=== PATIENT | female | born 1970 | race Two or more races ===

== ENCOUNTER 2024-07-26 00:05 | Day surgery (SDC) | payer BC, SELFPAY ==
[2024-07-26] VITALS (13 sets, daily range): BP systolic 124–174; BP diastolic 61–100; PULSE 72–104; RESP 12–22; TEMP 36.2–37.2; O2SAT 94–100
--- NOTE | 2024-07-26 00:33 | PD.EDRME ---
Rapid Medical Screening Exam RME Arrival date/time: 07/26/24 00:05 Chief Complaint: Abdominal Pain Time Seen by Provider: 07/26/24 00:32 Vital signs reviewed by provider: Miriam RME Narrative: 53-year-old female presents to the ED with a complaint of abdominal pain that began 1 day ago. Denies fever. Also complains of vomiting up to 3 times per day x 1 day. Denies diarrhea. Past medical history includes H. pylori
[2024-07-26 01:31] LABS: Basophils % (Auto) 0 % (0-2.5); Eosinophils # (Auto) 0.1 Thou/mm3 (0.0-0.5); Eosinophils % (Auto) 1 % (0-10); Hematocrit 41.5 % (36.0-46.0); Hemoglobin 14.4 g/dL (12.0-16.0); Immature Granulocytes % (Auto) 0 % (0-0); Immature Granulocytes Auto 0.02 Thou/mm3 (0.00-0.00); Lymphocytes # (Auto) 1.2 Thou/mm3 (1.0-4.8); Lymphocytes % (Auto) 13 % (10-50); Mean Corpuscular HGB Conc 34.7 g/dl (31.0-37.0); Mean Corpuscular Hemoglobin 28.7 pg (25.0-35.0); Mean Corpuscular Volume 83 fL (80-100); Monocytes # (Auto) 0.4 Thou/mm3 (0.0-0.8); Monocytes % (Auto) 4 % (0-12); Neutrophils # (Auto) 7.5 Thou/mm3 (1.8-7.7); Neutrophils % (Auto) 82 % (37-80); Nucleated Red Blood Cell % 0 /100 WBC (0); Platelet Count 194 Thou/mm3 (140-440); Red Blood Count 5.01 Miln/mm3 (4.00-5.20); White Blood Count 9.2 Thou/mm3 (3.6-11.0)
[2024-07-26] MEDS: ONDANSETRON INJ 2 MG/ML INJ 2 ML 4 MG IVP (01:49)
[2024-07-26] MEDS: MORPHINE SULF INJ 10 MG/ML VIAL 5 MG IVP (01:49)
[2024-07-26] MEDS: SODIUM CHLORIDE 0.9% 1000 ML 1,000 ML 80 ML IV (01:50)
[2024-07-26 02:06] LABS: Collection Type, Urine Clean Catch
[2024-07-26 02:07] LABS: Alanine Aminotransferase 33 U/L (10-49); Albumin, Serum 4.8 gm/dL (3.5-5.0); Albumin/Globulin Ratio 1.8 (1.2-2.2); Alkaline Phosphatase 95 U/L (46-116); Anion Gap 12 (7-16); Aspartate Amino Transferase 31 U/L (0-34); BUN/Creatinine Ratio 19 Ratio (12-20); Bilirubin,Total 0.5 mg/dL (0.3-1.2); Blood Urea Nitrogen 21 mg/dL (9-23); C-Reactive Protein < 0.5 mg/dL (0.0-0.9); Calcium 9.5 mg/dL (8.3-10.6); Calcium (Corrected) 9.5 mg/dL (8.5-10.1); Chloride 103 mMol/L (98-107); Creatinine (Component) 1.1 mg/dL (0.6-1.3); Globulin 2.6 gm/dL (2.3-3.5); Glucose 138 mg/dL (74-106); Lipase 56 U/L (12-53); Osmolality,Calculated 291 (275-295); Potassium 4.2 mMol/L (3.4-5.1); Procalcitonin 0.04 ng/ml (0.0-0.49); Sodium 144 mMol/L (136-145); Total Protein 7.4 gm/dL (5.7-8.2); eGFR 60 See Note
[2024-07-26 02:14] LABS: Bilirubin,Urine Negative (Negative); Blood,Urine Negative (Negative); Clarity,Urine Clear (Clear/Hazy); Color,Urine Lt-Yellow (Lt Yel-Yel); Glucose, Urine Negative (Negative); Ketones,Urine Negative (Negative); Leukocyte Esterase,Urine Positive (Negative); Nitrite,Urine Negative (Negative); Protein,Urine Trace (Neg - Trace); RBC,Urine 1 /hpf (0-3); Specific Gravity,Urine 1.027 (1.001-1.035); Squamous Epithelial Cell,Urine 5 /hpf (0-5); Urobilinogen,Urine Negative mg/dL (0.0-1.0); WBC,Urine 2 /hpf (0-5)
--- NOTE | 2024-07-26 02:14 | PD.EDABDPN ---
ED Abdominal Pain RME/HPI General Chief Complaint: Abdominal Pain Stated complaint: ABD PAIN Time seen by provider: 07/26/24 00:32 Arrival date/time: 07/26/24 00:05 RME / HPI RME / HPI narrative: 53-year-old female presents to the ED with a complaint of abdominal pain that began 1 day ago. Denies fever. Also complains of vomiting up to 3 times per day x 1 day. Denies diarrhea. Past medical history includes H. pylori Dr. Magallanes?s Main ED Evaluation: 53yo female with a previous hysterectomy presents to the ED for a chief complaint of epigastric pain x 1999. Patient states she finished taking her treatment for H. Pylori today, reporting she started having significant epigastric pain at 1999. She reports associated N/V and was unable to tolerate the pain, so she came in for evaluation. Patient denies any fever, chills, UTI symptoms, back pain or any other associated symptoms. Patient states she's had this pain for the last few years. NKA. Related Data Previous Rx's ?Medication ?Instructions ?Recorded famotidine 20 mg tablet (Acid 20 mg PO BID Epigastric pain 10 07/26/24 Controller) days #20 tabs hydrocodone 5 mg-acetaminophen 325 1 tab PO Q6H PRN pain #10 tabs 07/26/24 mg tablet ondansetron 4 mg disintegrating 4 mg PO Q6H PRN nausea and 07/26/24 tablet vomiting #14 tabs sucralfate 1 gram tablet 1 g PO TID Gastritis 10 days #30 07/26/24 tabs Allergies Allergy/AdvReac Type Severity Reaction Status Date / Time NKA* Allergy Uncoded 10/13/22 07:08 Review of Systems Review of Systems Systems Reviewed: All systems reviewed, normal except as documented Past Medical History Past Medical History NEUROLOGIC: Negative Neurological Disorders CARDIAC: Negative Cardiac Disorders or Congestive Heart Failure RESPIRATORY: Negative Chronic Obstructive Pulmonary Disease (COPD) GASTROINTESTINAL: Positive Obesity; Negative Gastrointestinal Disorders GENITOURINARY: Negative Genitourinary Disorders or Renal Disease REPRODUCTIVE: Negative Pelvic Inflammatory Disease MUSCULOSKELETAL: Negative Musculoskeletal Disorders ENDOCRINE: Negative Endocrine Disorders, Diabetes Mellitus Type 1 or Diabetes Mellitus Type 2 HEMATOLOGIC: Negative Blood Disorders OTHER HISTORY: Positive Chicken Pox and Measles; Negative Hospitalization, Autoimmune Disease, Down Syndrome, Developmental Delay, Shingles, Falls, Blood Transfusions, Anesthesia Reactions, Organ Transplant or Cancer Surgical History SURGICAL: Positive Tubal Ligation; Negative Cardiac Surgery, Endocrine Surgery, Ear Surgery, Abdominal Surgery, Nephrectomy, Joint Replacement, Neurologic Surgery or Organ Transplant Social History SMOKING STATUS: Never smoker ED Exam Narrative Physical exam: GENERAL APPEARANCE: alert and oriented x 4, well-developed, well-nourished, moderate pain distress VITALS: All vitals were reviewed and the pulse ox is 98% on room air, which is normal according to my interpretation. HEENT: Normocephalic, atraumatic; pupils equal, round, reactive to light; EOMI; mucous membranes pink, moist; oropharynx clear NECK: Supple LUNGS: CTABL; no wheezes, no rales, no rhonchi HEART: Regular rate, regular rhythm; normal S1, S2; no murmurs ABDOMEN: non distended; soft, no tenderness, no guarding, no rebound; no masses, no organomegaly, no hernia BACK: no CVA tenderness EXTREMITIES: atraumatic; no edema NEUROLOGIC: awake; alert and oriented x4; cranial nerves II-XII grossly intact; no focal sensory or motor deficits PSYCHIATRIC: appropriate mood and affect SKIN: warm, dry, normal color; no rashes Course Quality Measures none Orders Category Date Time Status CT Screening NOW Care 07/26/24 04:37 Active EKG (ED ONLY) *Do not use* NOW Care 07/26/24 04:[address] abdomen pelvis w con Stat Exams 07/26/24 04:36 Taken EKG (ED Only) Stat Exams 07/26/24 04:36 Draft US gall bladder Stat Exams 07/26/24 04:36 Ordered XR chest 1V portable Stat Exams 07/26/24 04:36 Taken C-Reactive Protein Stat Lab 07/26/24 01:18 Completed CBC Stat Lab 07/26/24 01:18 Completed Comprehensive Metabolic Panel Stat Lab 07/26/24 01:18 Completed Lactate (Lactic Acid) Stat Lab 07/26/24 01:18 Completed Lipase Stat Lab 07/26/24 01:18 Completed Procalcitonin Stat Lab 07/26/24 01:18 Completed Urinalysis Stat Lab 07/26/24 02:00 Completed Famotidine Inj [Pepcid Inj] Med 07/26/24 02:14 Discontinued 20 mg IVP X1 ONE Morphine Inj Med 07/26/24 00:38 Discontinued 5 mg IVP Q1H PRN Ondansetron Inj [Zofran Inj] Med 07/26/24 00:38 Discontinued 4 mg IVP X1 ONE Pantoprazole Inj [Protonix Inj] Med 07/26/24 02:14 Discontinued 40 mg IVP X1 ONE Sodium Chloride 0.9% 1000 ml [Ns] 1,000 ml Med 07/26/24 00:39 Active IV 80 mls/hr fentaNYL INJ [Sublimaze Inj] Med 07/26/24 04:38 Discontinued 50 mcg IVP X1 ONE mg Hyd/Al Hyd/Rubio Susp [Maalox Susp] Med 07/26/24 02:14 Discontinued 30 ml PO X1 ONE Vital Signs Vital signs: Vital Signs Temperature 98.9 F 07/26/24 00:31 Pulse Rate 104 H 07/26/24 00:31 Respiratory Rate 20 07/26/24 00:31 Blood Pressure 174/99 H 07/26/24 00:31 Pulse Oximetry (%) 97 07/26/24 00:31 Oxygen Delivery Method Room Air 07/26/24 00:31 Abdominal Pain MDM MDM Narrative MDM Narrative:: Scribe Attestation: 07/26/24 - Kristen Min am scribing for and in the presence of Dr. Magallanes. 0430: Patient does not have any abdominal tenderness. V/S are within normal limits. Patient states her pain has improved, but has not completely resolved. CT abdomen pelvis and US gallbladder ordered. 0600: Care signed out to Dr. Barrios (emergency physician). Past medical, surgical, social and family history reviewed. Vitals and home medications reviewed. Results and treatment plan discussed. They will assume the care of the patient at this time and will follow the patient, pending CT abdomen pelvis and US gallbladder. Patient data External records reviewed:: [facility] previous records (Per chart review, patient was seen here on 01/09/23 for acute epigastric pain.) Clinical information provided by:: patient Social determinants that could affect healthcare access:: none Patient has the following chronic illnesses:: none How is presenting disease/condition affected by chronic disease/condition?: no chronic disease Evaluation data The following diagnostics were reviewed and interpreted by me:: lab results Lab and/or radiology exams considered but not ordered:: none Interpretation Summary: CBC, CMP, and UA are all unremarkable. Medications / Prescriptions Medications or Prescriptions considered but not ordered:: none Medication administrations:: Medication Administration History Sodium Chloride (Ns) 1,000 mls @ 80 mls/hr IV .[id number] ONE Stop: 07/26/24 13:08 Last Admin: 07/26/24 01:50 Dose: 80 mls/hr Documented By: KEYONNA Discontinued Medications Al Hydrox/Mg Hydrox/Simethicone (Mg Hyd/Al Hyd/Rubio (Maalox Reg) Susp 30 Ml Udc) 30 ml PO X1 ONE Stop: 07/26/24 02:15 Last Admin: 07/26/24 02:46 Dose: 30 ml Documented By: KEYONNA Famotidine (Famotidine Inj 10 Mg/Ml Vial 2 Ml) 20 mg IVP X1 ONE Stop: 07/26/24 02:15 Last Admin: 07/26/24 02:45 Dose: 20 mg Documented By: KEYONNA Fentanyl Citrate (Fentanyl Cit Inj 50 Mcg/Ml Amp 2ml) 50 mcg IVP X1 ONE Stop: 07/26/24 04:39 Last Admin: 07/26/24 05:10 Dose: 50 mcg Documented By: KEYONNA Morphine Sulfate (Morphine Sulf Inj 10 Mg/Ml Vial) 5 mg IVP Q1H PRN PRN Reason: ABDOMINAL CRAMPING Last Admin: 07/26/24 01:49 Dose: 5 mg Documented By: KEYONNA Ondansetron HCl (Ondansetron Inj 2 Mg/Ml Inj 2 Ml) 4 mg IVP X1 ONE; Protocol Stop: 07/26/24 00:39 Last Admin: 07/26/24 01:49 Dose: 4 mg Documented By: KEYONNA Pantoprazole Sodium (Pantoprazole Inj 40 Mg Vial) 40 mg IVP X1 ONE Stop: 07/26/24 02:15 Last Admin: 07/26/24 02:46 Dose: 40 mg Documented By: KEYONNA see above Consultations Consultation(s) initiated? (list below): No Diagnosis Differential diagnosis abdominal pain: small bowel obstruction and other (gastritis, pancreatitis, PUD, cholecystitis) Most likely diagnosis given after review of the tests above:: Diagnostics pending at sign out. Admission Indicated Admission indicated?: not indicated Admission Request Was there a request for admission?: No Disposition Plan Disposition Plan: other (specify) (Signed out to Dr. Barrios at 0600 pending US gallbladder and CT abdomen pelvis.) Discharge Plan Prescriptions/Referrals Prescriptions/Med Rec: New famotidine [Acid Controller] 20 mg tablet 20 mg PO BID 10 Days Qty: 20 0RF sucralfate 1 gram tablet 1 g PO TID 10 Days Qty: 30 0RF ondansetron 4 mg tablet,disintegrating 4 mg PO Q6H PRN (Reason: nausea and vomiting) Qty: 14 0RF hydrocodone-acetaminophen 5-325 mg tablet 1 tab PO Q6H MDD 4 tabs PRN (Reason: pain) Qty: 10 0RF Referrals: Michelle Bautista PA-C [Primary Care Provider] - In 1 week Problem List Clinical Impression: Epigastric pain Patient/Caregiver Discharge Instructions Print Language: American Stand Alone Forms: Connie Award Info., Patient Portal Info Letter
[2024-07-26] MEDS: FAMOTIDINE INJ 10 MG/ML VIAL 2 ML 20 MG IVP (02:45)
[2024-07-26] MEDS: MG HYD/AL HYD/SIME (Maalox Reg) SUSP 30 ML UDC PO (02:46)
[2024-07-26] MEDS: PANTOPRAZOLE INJ 40 MG VIAL IVP (02:46)
--- NOTE | 2024-07-26 04:36 | XR_ITS ---
Examination: Abdomen sonogram, Limited Date and time of exam: July 26, 2024 1733 hours INDICATIONS: Right upper abdominal pain nausea and vomiting beginning 2 years ago Technique: Real-time steen scale transabdominal sonographic images of the upper abdomen obtained. Findings: Normal gallbladder Normal common bile duct 0.36 cm Pancreas obscured by bowel gas Liver 14.73 cm no focal liver lesions Normal hepatopedal portal venous flow Patent IVC. IMPRESSION: Normal gallbladder. Normal common bile duct
--- NOTE | 2024-07-26 04:36 | EKG_ITS ---
[facility] Test Date: 2024-07-26 Pat Name: REBECA SHIPLEY Department: Room: - Gender: Female Clinical Sociologist: : 1970 Requested By: Vitaliy Vega Order Number: [id number] Reading MD: Vitaliy Vega Measurements Intervals [place] Rate: 73 P: 21 MN: 168 QRS: 7 QRSD: 96 T: 43 QT: 399 QTc: 440 Interpretive Statements SINUS RHYTHM INCOMPLETE RIGHT BUNDLE BRANCH BLOCK [90+ ms QRS DURATION, TERMINAL R IN V1/V2, 40+ ms S IN I/aVL/V4/V5/V6] Compared to ECG 10/13/2022 07:23:05 Incomplete right bundle-branch block now present Myocardial infarct finding no longer present /store/S0/[id number]/ecg/[id number].pdf
--- NOTE | 2024-07-26 04:36 | XR_ITS ---
Examination: CT abdomen with intravenous contrast CT pelvis with intravenous contrast 2-D coronal reconstructions 2-D sagittal reconstructions Date and time of exam:August 22, 2024 at 0528 hours INDICATIONS: Onset of upper abdominal pain today. CTDI: vol (mGy) 15.5 DLP: (mGycm) 897 Technique: Multiple axial sections of the abdomen and pelvis have been obtained. 64 slice high-resolution scanner used. 3 mm axial sections have been obtained, post intravenous injection 60 cc Isovue 370 2-D sagittal, coronal reconstructions obtained. Low dose protocols were performed. One or more of the following dose reduction techniques were used; automated exposure control, adjustment of the mA and/or KV according to patient size, use of iterative reconstruction technique. Findings: No focal liver or splenic lesions No gallstones No pancreatic or adrenal mass. No renal or ureteral calculi. No hydronephrosis. Aorta normal size. Inflamed enlarged appendix which is retrocecal, coronal image 141 No pelvic abscess No pelvic mass Urinary bladder intact IMPRESSION: Acute appendicitis No pelvic abscess
--- NOTE | 2024-07-26 04:36 | XR_ITS ---
Examination: AP chest single view TECHNIQUE: AP portable upright chest single view Date and time: July 29, 2024, 0511 hours Comparison September 09, 2021 INDICATIONS: Epigastric pain and vomiting today FINDINGS: Normal heart size No pneumonia or pulmonary edema. The osseous structures are intact IMPRESSION: No pneumonia or pulmonary edema
[2024-07-26] MEDS: fentaNYL CIT INJ 50 mCg/ML AMP 2ML IVP (05:10)
--- NOTE | 2024-07-26 06:25 | PD.EDADDENDU ---
Emergency Room Addendum Addendum Narrative: 0600: Care assumed from Dr. Magallanes, the previous shift emergency physician. Past medical, surgical, social and family history reviewed. Vitals and home medications reviewed. I will assume the care of the patient at this time, pending CT US and final disposition. Please refer to the emergency department record for history and examination from initial visit.?The following addendum documentation note is intended to reflect any pending information, findings, or radiology results not included in the patient?s initial chart. 0708: Patient reports abdominal pain is mostly over epigastric region. On my examination, patient has McBurney's point tenderness. Reports only abdominal surgery she has had is tubal ligation. Not currently on any medications. 0820: Surgeon Dr. Blackwell has evaluated the patient and plans to admit them to the [facility] for surgery. RADIOLOGY Ordering Physician: Vitaliy Magallanes MD Date of Service: 07/26/24 Procedure(s): CT abdomen pelvis w con Accession Number(s): [id number] cc: Michelle Bautista PA-C; Joesph Ford MD; Vitaliy Magallanes MD~ Examination: CT abdomen with intravenous contrast CT pelvis with intravenous contrast 2-D coronal reconstructions 2-D sagittal reconstructions Date and time of exam:August 22, 2024 at 0528 hours INDICATIONS: Onset of upper abdominal pain today. CTDI: vol (mGy) 15.5 DLP: (mGycm) 897 Technique: Multiple axial sections of the abdomen and pelvis have been obtained. 64 slice high-resolution scanner used. 3 mm axial sections have been obtained, post intravenous injection 60 cc Isovue 370 2-D sagittal, coronal reconstructions obtained. Low dose protocols were performed. One or more of the following dose reduction techniques were used; automated exposure control, adjustment of the mA and/or KV according to patient size, use of iterative reconstruction technique. Findings: No focal liver or splenic lesions No gallstones No pancreatic or adrenal mass. No renal or ureteral calculi. No hydronephrosis. Aorta normal size. Inflamed enlarged appendix which is retrocecal, coronal image 141 No pelvic abscess No pelvic mass Urinary bladder intact IMPRESSION: Acute appendicitis No pelvic abscess Dictated By:Joesph Ford MD Signed By:<Electronically signed by Joesph Ford MD in OV>07/26/24 0711 Ordering Physician: Vitaliy Magallanes MD Date of Service: 07/26/24 Procedure(s): US gall bladder Accession Number(s): [id number] cc: Michlele Bautista PA-C; Joesph Ford MD; Vitaliy Magallanes MD~ Examination: Abdomen sonogram, Limited Date and time of exam: July 26, 2024 1733 hours INDICATIONS: Right upper abdominal pain nausea and vomiting beginning 2 years ago Technique: Real-time steen scale transabdominal sonographic images of the upper abdomen obtained. Findings: Normal gallbladder Normal common bile duct 0.36 cm Pancreas obscured by bowel gas Liver 14.73 cm no focal liver lesions Normal hepatopedal portal venous flow Patent IVC. IMPRESSION: Normal gallbladder. Normal common bile duct Dictated By:Joesph Ford MD Signed By:<Electronically signed by Joesph Ford MD in OV>07/26/24 0706
--- NOTE | 2024-07-26 07:04 | PRELIM_ITS ---
CT scan of the abdomen and pelvis with intravenous contrast (axial sections with sagittal and coronal reformats) July 26, 2024 at 0528 hours Clinical History: Upper abdominal pain. Comparison: No prior study is available for comparison. Findings: The appendix is thickened, measuring 1 cm (coronal images 81-100/186) with mild wall enhancement and periappendiceal fat stranding. There is no free fluid or free air. No evidence of bowel obstruction. There are multiple colonic diverticula without evidence of diverticulitis. The liver, gallbladder, spleen, pancreas, adrenals and kidneys are unremarkable. The urinary bladder is normal. The uterus and adnexa are unremarkable. The osseous structures are unremarkable. The lung bases are clear. Impression: Acute appendicitis without perforation or abscess. Discussion Details: Results verbally communicated to : Dr. Barrios at 06:48 AM 07/26/2024 Report Electronically Signed By: Nasir Mathis 07/26/2024 7:04:08 AM [EST]
--- NOTE | 2024-07-26 07:28 | PRELIM_ITS ---
Ultrasound Abdomen. July 26, 2024 0535 hours Clinical history: Epigastric pain Technique: Grayscale and color flow images of the abdomen are provided. Hepatic and portal veins were also imaged with color flow images. Correlated with the prior CT study dated 07/26/2024 Findings: The liver is normal in echogenicity. No intrahepatic biliary ductal dilatation.Main portal vein is patent. Inferior vena cava is patent. No gallbladder calculus, wall thickening or pericholecystic fluid is demonstrated. The common bile duct is normal in caliber at 3.6mm. No free fluid is demonstrated on the submitted images. The pancreas is obscured due to bowel gas. Impression: No evidence of acute cholecystitis. Other findings as described above. Report Electronically Signed By: Nasir Mathis 07/26/2024 7:28:01 AM [EST]
[2024-07-26] MEDS: MORPHINE SULF INJ 10 MG/ML VIAL 4 MG IVP (08:14)
[2024-07-26] MEDS: CEFOXITIN 1 GM in SODIUM CHLORIDE 0.9% (Popper) 50 ML IV ×2 (08:14→09:03)
--- NOTE | 2024-07-26 09:10 | PC.NURSE ---
report given to Paresh on OR floor.
--- NOTE | 2024-07-26 09:20 | ESHP_ITS ---
HPI Date of Admission 07/26/2024 Chief Complaint Chief Complaint: Right lower quadrant abdominal pain with nausea and vomiting HPI 53-year-old obese female without significant past medical history presented to the emergency department with acute onset of abdominal pain. Her pain started last night around 10 PM. The pain was initially in periumbilical and epigastric area. Her pain did not become persistent, progressively worse and localized over right lower quadrant. She has had nausea and vomiting, but denies fever, chills, diarrhea, constipation or dysuria. She denies history of trauma. Review of Systems Constitutional Constitutional: Denies chills and Denies fever(s) Cardiovascular Cardiovascular: Denies chest pain Respiratory Respiratory: Denies cough Gastrointestinal Gastrointestinal: Reports abdominal pain, Reports nausea and Reports vomiting Genitourinary Genitourinary: Denies difficulty voiding Hematologic/Lymphatic Hematologic/Lymphatic: Denies easy bleeding and Denies easy bruising Past Medical History Surgical History OTHER SURGICAL HX: Tubal ligation Social History SMOKING STATUS: Never smoker SUBSTANCE USE: does not use ALCOHOL: Never Meds Home Medications and Allergies Allergies Allergy/AdvReac Type Severity Reaction Status Date / Time NKA* Allergy Uncoded 10/13/22 07:08 Exam Vital Signs Temp Pulse Resp BP Pulse Ox O2 Del Method 98.6 F 82 12 131/88 H 94 L Room Air 07/26/24 08:07 07/26/24 08:07 07/26/24 08:07 07/26/24 08:07 07/26/24 08:07 07/26/24 08:07 Constitutional Constitutional: no acute distress Routine Respiratory Exam Respiratory: Present CTA bilaterally Routine Cardiovascular Exam Cardiovascular: Present RRR Routine Abdominal Exam Abdominal: Present soft, normoactive bowel sounds and tenderness (Right lower quadrant tenderness to palpation with guarding, no rebound tenderness or peritonitis at this time); Absent distended Results Results: Imaging CT scan - abdomen: report reviewed and image reviewed CT scan - pelvis: report reviewed and image reviewed Assessment & Plan Problem List (1) Acute appendicitis: Qualifiers: Acute appendicitis type: unspecified acute appendicitis type Qualified Code(s): K35.80 - Unspecified acute appendicitis Status: Acute Plan Keep patient n.p.o. with IV fluids and IV antibiotics and plan for laparoscopic possible open appendectomy. Risks include but not limited to infection, bleeding, injury to bowel, bladder, ureter, surrounding vascular structures, abdominal sepsis and or abdominal abscess, need for further procedure and or operation discussed with the patient via benefits sales consultant. Benefits and alternatives explained to her, all her questions answered, she agreed and consented to proceed with the operation. Quality Measures Quality Measures none
--- NOTE | 2024-07-26 11:25 | PC.CC ---
ASW completed a face to face initial assessment with the pt at bedside ER #[id number]. ASW informed the pt the reason for the assessment and pt understood. Hydrotel Operator informed pt that she was going to be admitted and she understood. Pt confirmed her demographics and all was correct on the face sheet. Pt stated her PCP is Michelle at [facility] and her pharmacy of choice is [facility] in [place]. Pt stated that prior to her coming to the hospital, she was doing her own ADLs and did not use any type of DME. Pt reports she cooks, cleans and does her own grooming/hygiene. Pt reports she is a Full Code and does not use any O2 at home. Pt reports that she if she were to be offered SNF v Home, she would prefer to be home. Pt denies being on dialysis, home health or hospice care. Pt stated in the event she is unable to make her own decisions, her spouse Aki Lan [phone] would be her decision maker. Decision Maker-Aki Lan [phone] Full Code PCP Michelle from [facility] Next of Kin- Aki Lan [phone] and person to Notify- Dorothy Lan [phone].
--- NOTE | 2024-07-26 11:50 | PD.SUROPNT ---
Date of Procedure 07/26/24 Pre Op Diagnosis Acute appendicitis Post Op Diagnosis Acute appendicitis Procedure Laparoscopic appendectomy Findings Inflamed, dilated and hyperemic distal appendix without perforation Procedure Description Patient was brought into the operating room in supine position. After administration of general endotracheal anesthesia, abdomen was prepped and draped in standard surgical manner. A Veress needle was inserted through the umbilicus and pneumoperitoneum was obtained up to 15 mmHg. The Veress needle was removed and a 5 mm umbilical incision was made. A 5 mm trocar was placed and laparoscopic camera was inserted. Under direct visualization a laparoscopic camera a 5 mm trocar placed in suprapubic region and a 10 mm trocar placed in left lower quadrant. The abdomen was inspected, the cecum was identified and followed until the appendix was identified. The distal aspect of appendix was noted to be inflamed, dilated and hyperemic without perforation. A window was created between the appendix and mesoappendix and the appendix was divided near the appendix and cecal junction with blue Endo LOYDA stapling device. The mesoappendix was divided with steen Endo LOYDA stapling device. The appendix was placed inside an Endo Catch and removed from the abdomen utilizing left lower quadrant trocar site. Abdomen and pelvis copiously and thoroughly washed and irrigated, all the fluids were suctioned and the suctioned fluid returned clear. Hemostasis was adequate and satisfactory, staple lines were intact without bleeding or any leakage. Left lower quadrant trocar sites fascial defect was closed with 0 Vicryl using Endo closure device. Instruments and trocars removed, pneumoperitoneum was evacuated and the incisions closed with 4-0 Monocryl subcuticular fashion. Instruments, needles and sponge counts were reported to be correct ??2. Patient tolerated the procedure well, was extubated, breathing spontaneously and without difficulty and was transferred to postanesthesia care in stable condition. Anesthesia GETA and local Pathology / specimen Other (Appendix) Estimated Blood Loss 10 Condition Stable Disposition PACU Surgeon Liliana Blackwell MD Surgical Staff Operation Date: 07/26/24 11:15 Case Staff Anesthesiologist: Vitaliy Acosta RN First Assistant: Mala Trevino
--- NOTE | 2024-07-26 11:58 | SUR.PHASEI ---
pt arrived to PACU via gurney drowsy but arouses to voice, breathing unlabored, dressing to abdomen clean, dry, and intact, report from Thomas SIFUENTES and Dr Acosta
--- NOTE | 2024-07-26 12:10 | SUR.PHASEI ---
1210: Report received from Luciana Barlow RN. Pt. AAOx4, vitals stable, breathing unlabored, no complaint of pain or nausea, x3 dermabond sites to ABD CDI, no active bleed noted.
--- NOTE | 2024-07-26 13:00 | SUR.PHASEII ---
1300: Pt. AAOx4, vitals stable, breathing unlabored, no complaint of pain or nausea, dressing to ABD CDI, no active bleed noted, pt. tolerated bites of ice well, pt. ambulated to wheelchair with steady gait and no assist, no complications. Gave discharge instructions to the pt. and her ride, both verbalized understanding and had no further questions. Pt. left with all personal belongings.
== END 2024-07-26 13:00 | disposition home or self-care (01) ==
LOC: SERX 08:37 → S2EX 08:45
PROVIDERS: Physician Assistant; Emergency Provider Emergency Medicine; PCP Physician Assistant; Referring Provider Surgery; Visit Provider Surgery
PROC: 0DTJ4ZZ Resection of Appendix, Percutaneous Endoscopic Approach (ICD-10-PCS; CPT 44970; principal; 2024-07-26 11:00)
DX: K35.30 Acute appendicitis with localized peritonitis, without perforation or gangrene (principal); E66.9 Obesity, unspecified; Z01.810 Encounter for preprocedural cardiovascular examination
CPT/HCPCS: 44970; 36415; 71045; 74177; 76705; 80053; 81001; 83605; 83690; 84145; 85025; 86140; 96365; 96375; 96376; 99285; A4217; A4649; J0694; J1100; J1885; J2250; J2270; J2405; J2470; J2704; J3010; J3490; J7030; J7050; Q9967; A9270